=== PATIENT | female | born 1965 | race Caucasian/White ===

== ENCOUNTER 2016-06-18 15:18 | Inpatient (IN) | payer OTHER ==
--- NOTE | ~2016-06-18 | IDS ---
Interim Discharge Summary [facility] [address] [place]. [address] NAME: JOSHUA KOENIG : 69 STATUS : ADM IN [facility]#: [id number] AGE: 51 ADM/REG DATE : 06/18/16 MR#: [id number] REPORT SERV DATE: 06/21/16 DICTATED BY: WILMER RUSSELL DATE: 06/21/16 REPORT STATUS : Draft TRANSCRIBED BY: MODL DATE: 06/21/16 ADMISSION DATE: 06/18/2016 DISCHARGE DATE: CONSULTANTS: Dr. Chiki Gross, Ortho Spine; Dr. Sharan Rivas, Infectious Disease. PROBLEM LIST: 1. 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 2. Neck cellulitis and myositis. 3. Untreated bipolar disorder. 4. HIV, not taking her anti-retroviral therapy at home. 5. Homeless status. 6. History of asthma. 7. Stage 3 chronic kidney disease. 8. History of cocaine abuse. 9. Borderline B12 deficiency. 10.Anemia of chronic disease. 11.Thrombocytopenia. HISTORY: The patient presented to the emergency room at [facility] with complaints of neck pain. She has known HIV and reportedly has not been taking her medications and not been going to see her infectious specialist, Dr. Gusman. In the [facility] ER on this admission, she had neck pain and fever of 101.4. She reportedly was somewhat lethargic and somewhat confused. There was a spinal tap done by the ER. She had only four white blood cells, glucose was normal at 50, protein was normal at 35.6. She was admitted to [facility] and started on antibiotics. Blood cultures x2 grew out methicillin-sensitive Staphylococcus aureus. The CSF did not grow anything. The patient had an echocardiogram done at [facility] on 06/18/2016 showing left atrial size 3.1 cm, left ventricular ejection fraction normal at 55% to 60%, but the tricuspid valve endocarditis and vegetation was seen by Dr. Cabrera. With her complaint of neck pain in the presence of evidence for endocarditis, she underwent an MRI of her cervical spine, which revealed right-sided neck cellulitis and myositis without discrete soft tissue abscess or epidural abscess. There was inflammation, mild thickening, and enhancement of the posterior dura of the cervical spinal cord from C4 through T1. CT of the cervical spine showed diffuse edema along the soft tissues of the right side of the neck involving the right parotid gland with some small scattered pockets of gas in the right neck beginning just below the right ear and extending to the angle of the mandible. There was edema located in the fat and muscle planes of the paraspinous tissues in the midline and right of midline. As a result, the patient was transferred to the [facility] and was seen by Ortho Spine, Dr. Chiki Gross. He examined the patient and went over the history to look at the images, but he thought the patient had soft tissue infection and no collection that would need drainage just antibiotic coverage and a soft collar. The patient is being seen by Dr. Sharan Rivas and is currently on Ancef 2 g IV every eight hours Interim Discharge Summary [address] [place]. [address] NAME: JOSHUA KOENIG : 69 STATUS : ADM IN [facility]#: [id number] AGE: 51 ADM/REG DATE : 06/18/16 MR#: [id number] REPORT SERV DATE: 06/21/16 DICTATED BY: WILMER RUSSELL DATE: 06/21/16 REPORT STATUS : Draft TRANSCRIBED BY: EDVIN DATE: 06/21/16 as well as her anti-retroviral therapy. The patient has admitted history of cocaine use. She also has admitted history of not taking her anti-retroviral medicines. She also states she has bipolar disorder. She states that she cannot tolerate Seroquel, cannot tolerate Depakote, and she states lithium did not work for her. She cannot remember what therapy she might have tried in the past. Here, she has been very emotionally labile, one minute crying almost inconsolably, the next minute laughing and joking. She has rapid speech. She is very tangential. We are asking for Psychiatry to see her in consultation. She complains primarily of neck pain and wanting more narcotics. She points to the right side of her neck. I have looked at her right neck and her right face, and I did not see any physical exam evidence of subcutaneous air or even induration just subjective pain. At this point in time, I am going to add some gabapentin for trying to ameliorate what might be neuropathic pain. It is anticipated that she will need a long course of antibiotics and followup with infectious disease specialist, Dr. Gusman. JIM/EDVIN Wilmer Russell M.D. / [id number] CC: Montez Billings M.D.
--- NOTE | ~2016-06-18 | IDS ---
Interim Discharge Summary [facility] [address] [place]. [address] NAME: JOSHUA KOENIG : 69 STATUS : ADM IN PAT#: [id number] AGE: 51 ADM/REG DATE : 06/18/16 MR#: [id number] REPORT SERV DATE: 06/29/16 DICTATED BY: ARIANE JARAMILLO DATE: 06/29/16 REPORT STATUS : Draft TRANSCRIBED BY: MODL DATE: 06/29/16 ADMISSION DATE: 06/18/2016 DISCHARGE DATE: Date of transfer of the patient to my colleague is 06/30/2016. I have nothing more to add to discharge summary dictated by Dr. Bolivar Russell on 06/21/2016. DIAGNOSES: Diagnoses on this patient include exactly the same thing as dictated in his summary and these include: 1. Tricuspid valve endocarditis and bacteremia with methicillin-susceptible Staphylococcus aureus for which the patient is on IV Ancef and ID is following this patient and has suggested that she get IV antibiotics until 07/31/2016 with the same dose of the Ancef that she is getting. 2. History of IV cocaine use and hence the patient going home with any intravenous access is not feasible in this patient. 3. History of neck cellulitis and myositis - the patient complained of neck pain and tried to get narcotic medications from me - please see Dr. Russell's note, and I agree with his note in relation to neck pain on this patient. She does have a soft cervical collar that she wears and keeps complaining of this pain, but I did give her Zanaflex or tizanidine which is a muscle relaxer and she has been getting this on a regular basis for the last two or three days and does report relief of the neck pain. 4. Bipolar disorder. 5. HIV - the patient is supposed to be on anti-retroviral medications, but she is noncompliant with that; however, the patient has been given these medications as prescribed and managed by Dr. Rivas, Infectious Disease specialist, as of now so far. 6. Homeless status. 7. History of asthma. 8. Chronic kidney disease, stage 3 with a baseline creatinine of around 1.7 and 1.8. BRIEF HOSPITAL COURSE: Essentially, there has been no change in this patient and she has just been waiting for insurance approval to go to [facility] as of now. If she is approved to go to [facility] within the next day or two, she will be sent to [facility] on IV antibiotics, namely IV Ancef to be getting this all the way through 07/31/2016 per ID recommendations. My colleague will be taking over care of this patient as of 06/30/2016. GEMMA/EDVIN Ariane Jaramillo M.D. / [id number] CC: Interim Discharge Summary [address] [address] NAME: JOSHUA KOENIG : 69 STATUS : ADM IN [facility]#: [id number] AGE: 51 ADM/REG DATE : 06/18/16 MR#: [id number] REPORT SERV DATE: 06/29/16 DICTATED BY: ARIANE JARAMILLO DATE: 06/29/16 REPORT STATUS : Draft TRANSCRIBED BY: EDVIN DATE: 06/29/16 Montez Davis M.D.
--- NOTE | ~2016-06-18 | IDS ---
Interim Discharge Summary [facility] [address] [place]. [address] NAME: JOSHUA KOENIG : 69 STATUS : ADM IN [facility]#: [id number] AGE: 51 ADM/REG DATE : 06/18/16 MR#: [id number] REPORT SERV DATE: 07/05/16 DICTATED BY: WILMER RUSSELL DATE: 07/05/16 REPORT STATUS : Draft TRANSCRIBED BY: MODL DATE: 07/05/16 ADMISSION DATE: 06/18/2016 DISCHARGE DATE: CONSULTANTS: Dr. Sharan Rivas, Infectious Disease; Dr. Chiki Gross, Orthopedic Spine; Dr. Dre Campuzano, Psychiatry. PROBLEM LIST: 1. 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 2. Neck cellulitis, myositis, now resolved. 3. Bipolar disorder, improved on low-dose Seroquel. 4. HIV, now back on anti-retroviral therapy. 5. Oral ulcers. 6. History of cocaine and opiate addiction. 7. Bipolar. 8. Stage 3 chronic kidney disease. 9. Seasonal allergies. 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 11.Previous thrombocytopenia, now resolved. 12.Seborrhea. 13.Borderline B12 deficiency. HISTORY: This patient went to the ER at [facility] with neck pain. She is a known HIV and had not been taking her anti-retroviral medications recently. She had not been following up regularly with her infectious disease specialist, Dr. Gusman. In the [facility] ER, she had neck pain and fever of 101.4 and was reportedly lethargic and somewhat confused. Spinal tap there showed white cells of 4, glucose 50, protein 35.6. She was started on antibiotics. Blood cultures grew out methicillin-sensitive Staphylococcus aureus on two sets. CSF with no growth. Echocardiogram at [facility] on 06/18/2016 showed left atrial size 3.1 cm, left ventricular ejection fraction 60%, and evidence of tricuspid valve endocarditis with vegetation as interpreted by Dr. Cabrera. With her complaints of neck pain in the presence of endocarditis, she underwent MRI of the cervical spine which revealed right-sided neck cellulitis and myositis without discrete soft tissue abscess or epidural abscess. There was inflammation and mild thickening and enhancement of the posterior dura of the cervical spine from C4 through T1. CT of the cervical spine showed diffuse edema along the soft tissues of the right side of the neck and even up and involving the right parotid gland with some small scattered pockets of gas in the right neck beginning just below the right ear and extending to the angle of the mandible. There was edema in the fat muscle planes of the paraspinous tissues. As a result, she was transferred from [facility] to the [facility] to see Ortho Spine, Dr. Chiki Gross. Dr. Gross saw the patient, went over the images, examined her, indicated he felt that there was no reason for surgical indication at this time and just to continue with antibiotic therapy. Infectious Disease, Dr. Rivas, is following the patient. She is currently on Ancef 2 g every Interim Discharge Summary [address] [place]. [address] NAME: JOSHUA KOENIG : 69 STATUS : ADM IN [facility]#: [id number] AGE: 51 ADM/REG DATE : 06/18/16 MR#: [id number] REPORT SERV DATE: 07/05/16 DICTATED BY: WILMER RUSSELL DATE: 07/05/16 REPORT STATUS : Draft TRANSCRIBED BY: EDVIN DATE: 07/05/16 eight hours. She is to complete that course on 07/31/2016. So far, we have not had any rehab facility even [facility] that was approved to take her for long-term care. We would not send her out as an outpatient for her antibiotic care because of her history of drug abuse. She has admitted a history of cocaine abuse and opiate addiction. She also had bipolar disorder. She reported initially that she cannot tolerate Seroquel or Depakote or lithium, but it was very vague, and she was manic here, so I did have Dr. Campuzano see the patient, and he felt she did need intervention. He wanted to start on Seroquel 25 mg at bedtime. I talked with him about yes, doing that but stay on a very low dose because of the anti- retroviral therapy that the patient is taking. Remarkably after the Seroquel, she is much less manic, much less emotionally labile, and much more cooperative. She has really not been in any problem behavior hall at all. She has had some oral ulcers. We started Orajel, which helped a little. Now, we have started Magic Mouthwash. I did find an RPR positive 10/05/1994 and getting a repeat plus or minus FTA-ABS levels. She still has a PICC line in the right upper extremity. She had to have Cathflo because of plugging. She is getting B12 supplement. She is getting Selsun Blue shampoo for her seborrhea. This is helping to control her seborrhea. She is getting Claritin for her seasonal allergies which is helping as well. JIM/EDVIN Wilmer Russell M.D. / [id number] CC: Montez Billings M.D.
--- NOTE | ~2016-06-18 | CN ---
Consultation Report [facility] [address] [place]. [address] NAME: JOSHUA KOENIG : 69 STATUS : ADM IN PAT#: [id number] AGE: 51 ADM/REG DATE : 06/18/16 MR#: [id number] REPORT SERV DATE: 06/22/16 DICTATED BY: DRE SHARP DATE: 06/22/16 REPORT STATUS : Draft TRANSCRIBED BY: MODL DATE: 06/22/16 PSYCHIATRIC CONSULTATION DATE OF CONSULTATION: 06/22/2016 HISTORY OF PRESENT ILLNESS: This patient was admitted with MSSA sepsis, with endocarditis. I was consulted to address bipolar disorder. PAST PSYCHIATRIC HISTORY: She reports that she has suffered from mood swings for all of her adult life. She has had episodes of hudson some of which were euphoric and some dysphoric. She is a frequent user of crack cocaine. She smokes marijuana and tobacco. Some years ago, she was treated at [facility]. She stopped attending there about five years ago. SOCIAL HISTORY: She has had multiple relationships and marriages. She lost custody of her two children about 20 years ago. 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 FAMILY HISTORY: She reports that her mother may suffer from mood swings. MENTAL STATUS: She was awake and alert. She was cooperative in attitude. Her mood was euthymic. Her affect was labile. Her thinking was somewhat pressured. She was oriented to time, place, and person. She had no delusions. She had no hallucinations. DIAGNOSIS: Bipolar disorder, manic. RECOMMENDATIONS: She agreed to take Seroquel only if I started her on the lowest possible dose. She said she took it once some years ago and it caused over-sedation. I will start her on Seroquel 25 mg p.o. at bedtime. I will follow. SHAWN/EDVIN Der Sharp M.D. / [id number] CC: Montez Billings M.D.
--- NOTE | ~2016-06-18 | DS ---
Discharge Summary [facility] [address] [place]. [address] NAME: JOSHUA KOENIG : 69 STATUS : DIS IN PAT#: [id number] AGE: 51 ADM/REG DATE : 06/18/16 MR#: [id number] REPORT SERV DATE: 08/01/16 DICTATED BY: BYRON DAVIDSON DATE: 07/31/16 REPORT STATUS : Draft TRANSCRIBED BY: MODL DATE: 07/31/16 ADMISSION DATE: 06/18/2016 DISCHARGE DATE: 07/31/2016 HOSPITAL COURSE: This is a 51-year-old female. She suffers from HIV for which she is now on HAART therapy, bipolar disorder, recurrent aphthous ulcers, history of cocaine opiate addiction, polysubstance abuse, IV drug use, CKD 3, previous positive RPR in 1994, previous thrombocytopenia resolved, seborrhea, borderline B12 deficiency as an outpatient. The patient had not been taking her highly active anti-retroviral therapy for HIV. She has been seeing Dr. Gusman for decades, came into [facility] with neck pain, fever 101.4, lumbar puncture show white blood cells 4, protein 35, glucose of 50. She grew out bacteremia methicillin-sensitive Staphylococcus aureus. Echo showed LVEF of 60%, but then found tricuspid valve endocarditis vegetation. The patient had neck pain, who presents with endocarditis, as a result had MRI and it showed right-sided neck cellulitis and myositis without discrete soft tissue abscess with some small scattered pockets of gas in right neck beginning just below the right ureter extending to the angle of the mandible. As a result, she was sent to [facility] seen by Dr. Gross, who did not feel surgical therapy was indicated. ID Dr. Rivas saw the patient, was transitioned to Ancef 2 g IV q.8 hours. She is to complete the course today on 07/31/2016. She is here because of her risk with [facility] of ensuring the patient does not interfere with her PICC line, known history of IV drug use which she did admit to me that she did months ago. Dr. Campuzano did see the patient, and at that time did not require any intervention, was not manic at that time, but apparently was manic prior. The patient is finally ready for discharge. She did at one time have pleuritic chest pain 3 days ago. D-dimer was elevated, could not give contrast because of her CKD. Got a V/Q scan, but she is 100% room air unlikely to have any PE despite moderate risk. No overt swelling. No more chest pain. No more pleurisy. Cardiac enzymes were negative. The patient at one time was supposed to go to [facility] in [place], now she has changed her mind going to [facility]. She will be discharged home, then go quickly to the recovery center after she has completed her therapy. She will follow up with PCP in two weeks. Follow up with Dr. Gusman in two to six weeks. Follow up with Nephrology for CKD 3 in 4 to 12 weeks. Discharged home, quick followup at [facility]. The patient understands, she is going to stop any and all polysubstance abuse, and alcohol. DISCHARGE MEDICATIONS: 1. Acyclovir 400 mg p.o. b.i.d. 2. We will get a multivitamin tablet p.o. daily as recommendation. 3. Prezista 800 mg p.o. q.h.s. 4. Colace 100 mg p.o. daily. 5. Tivicay 50 mg p.o. b.i.d. 6. Claritin 10 mg p.o. daily p.r.n. 7. MD Alfonso mouth wash 5 mL p.o. liquid q.6 hours for recurrent aphthous ulcers. Discharge Summary [address] [address] NAME: JOSHUA KOENIG : 69 STATUS : DIS IN PAT#: [id number] AGE: 51 ADM/REG DATE : 06/18/16 MR#: [id number] REPORT SERV DATE: 08/01/16 DICTATED BY: BYRON DAVIDSON DATE: 07/31/16 REPORT STATUS : Draft TRANSCRIBED BY: EDVIN DATE: 07/31/16 8. Mirapex 0.125 mg p.o. q.h.s. 9. Seroquel 25 mg p.o. q.h.s. 10.Norvir 100 mg p.o. q.h.s. 11.Ibuprofen p.r.n. 12.We would recommend multivitamin one pill p.o. daily. I gave her prescriptions for all of her necessary medications in case she ran out as an outpatient or could not afford them. I would like to reference her CD4 count, absolute is 105, CD4 percent is 13.1 which measures near 180 of the advanced HIV, suspicion is with compliance with HAART therapy. Her C4 should increase. Right of Pneumocystis PCP is low if she is compliant. For HIV 1 viral LDRES load is 128. Hepatitis serologies were not detected. CONSULT: 1. Infectious Disease. 2. Ortho Spine. Bipolar disease. We will give dose Ancef early, then D/C PICC line prior to discharge. DISCHARGE DIAGNOSES: 1. Left pleuritic chest pain. 2. Methicillin-sensitive Staphylococcus aureus. 3. Tricuspid valve endocarditis. 4. Human immunodeficiency virus, Advanced HIV-CD4 with percent, CD4 is more likely near 180, absolutes are 100, near low 100. 5. History of bipolar. 6. History of polysubstance abuse. 7. Chronic kidney disease, stage 3. 8. Restless legs syndrome. All questions were answered. It took well over 30 minutes to do. HAILE/ENOCL Byron Davidson DO / [id number] CC: DO Hay Carlton M.D.
--- NOTE | ~2016-06-18 | IDS ---
Interim Discharge Summary [facility] [address] [place]. [address] NAME: JOSHUA KOENIG : 69 STATUS : ADM IN [facility]#: [id number] AGE: 51 ADM/REG DATE : 06/18/16 MR#: [id number] REPORT SERV DATE: 07/13/16 DICTATED BY: ASHISH PAUL DATE: 07/12/16 REPORT STATUS : Draft TRANSCRIBED BY: MODL DATE: 07/12/16 ADMISSION DATE: 06/18/2016 DISCHARGE DATE: DIAGNOSES: 1. Staphylococcus aureus sepsis with endocarditis and tricuspid valve. 2. Human immunodeficiency virus. 3. History of bipolar disorder. 4. History of polysubstance abuse. 5. History of neck abscess and cellulitis. HISTORY OF PRESENT ILLNESS: Please see Dr. Russell's dictation 06/18/2016. HOSPITAL COURSE: Please see subsequent interim summaries by Dr. Russell, Dr. Whiting hospital course of the past week. The patient was not found to be placable in any location including a detention facility or [place]. As the patient was homeless and unreliable, it was felt best not to try to attempt home health care at a relative's house, of course, the biggest concern would be relapse of her injectable drug abuse, so she would stay with us until 07/31/2016, at which time, her vancomycin will be completed and she be released to a drug rehab location, which had already been set up in [place], but will be here in the interim time. FIDEL/EDVIN Ashish Paul M.D. / [id number] CC: Montez Marino M.D.
--- NOTE | ~2016-06-18 | IDS ---
Interim Discharge Summary [facility] [address] [place]. [address] NAME: JOSHUA KOENIG : 69 STATUS : ADM IN [facility]#: [id number] AGE: 51 ADM/REG DATE : 06/18/16 MR#: [id number] REPORT SERV DATE: 07/27/16 DICTATED BY: GRAEME GALLEGO DATE: 07/27/16 REPORT STATUS : Draft TRANSCRIBED BY: MODLuana DATE: 07/27/16 ADMISSION DATE: 06/18/2016 DISCHARGE DATE: REASON FOR ADMISSION: The patient was admitted at [facility] with chief complaint of severe neck pain, weakness, and fever. She is a 51-year-old female with history of cocaine use and HIV. HOSPITAL COURSE: Please see admission H and P from Cintia Cerna on 06/18/2016 as well as interim discharge summary from Bolivar Russell 06/21/2016, interim discharge summary from Antionette Whiting on 06/29/2016, interim discharge summary from Bolivar Russell on 07/05/2016, and interim discharge summary from Dr. Dave Sanches on 07/13/2016. I took over the patient's care on 07/21/2016. INTERIM DISCHARGE DIAGNOSES: 1. Methicillin-sensitive Staphylococcus aureus tricuspid valve endocarditis. 2. Human immunodeficiency virus. 3. History of bipolar. 4. History of polysubstance abuse. 5. Acute kidney injury on chronic kidney disease. 6. Restless legs syndrome. MSSA tricuspid valve endocarditis, the patient is here, receiving IV Ancef under direction of Infectious Disease for her endocarditis. MSSA bacteria positive. She is will be on it through 07/31/2016 and is nearing conclusion of her treatment. There have been no status changes throughout the week except for the patient had complaint of restless leg like symptoms. She was started on Mirapex and had resolution of symptoms. CURRENT MEDICATIONS: 1. Acyclovir 400 mg p.o. b.i.d. 2. Ancef 2 g IV q.8 h. 3. Vitamin B12 of 2000 mcg p.o. daily. 4. Darunavir 800 mg p.o. at bedtime. 5. Colace 100 mg p.o. daily. 6. Dolutegravir sodium 50 mg p.o. b.i.d. 7. Loratadine 10 mg p.o. daily. 8. Mirapex 0.125 mg p.o. at bedtime. 9. Seroquel 25 mg p.o. at bedtime. 10.Ritonavir 100 mg p.o. at bedtime. 11.Florastor one capsule p.o. b.i.d. 12.Selenium sulfide topically daily. CURRENT PLAN: The patient to complete her IV Ancef treatment on 07/31/2016 and then is reportedly going to check herself into drug rehab at conclusion of hospital stay. The patient care to be assumed by Nicolas Jon this week. Interim Discharge Summary [place] [id number] [place] [address] NAME: JOSHUA KOENIG : 69 STATUS : ADM IN PAT#: [id number] AGE: 51 ADM/REG DATE : 06/18/16 MR#: [id number] REPORT SERV DATE: 07/27/16 DICTATED BY: GRAEME GALLEGO DATE: 07/27/16 REPORT STATUS : Draft TRANSCRIBED BY: EDVIN DATE: 07/27/16 TDR/EDVIN Graeme Gallego APN / [id number] CC: Montez Marino M.D. Hal [place], M.D. Wesley S. Thompson, DO
--- NOTE | ~2016-06-18 | CN ---
Consultation Report [facility] [address] [place]. [address] NAME: JOSHUA KOENIG : 69 STATUS : ADM IN [facility]#: [id number] AGE: 51 ADM/REG DATE : 06/18/16 MR#: [id number] REPORT SERV DATE: 06/19/16 DICTATED BY: KALYAN RIVAS DATE: 06/19/16 REPORT STATUS : Draft TRANSCRIBED BY: MODL DATE: 06/19/16 INFECTIOUS DISEASE CONSULTATION DATE OF CONSULTATION: 06/19/2016 REASON FOR CONSULTATION: MSSA septicemia, complicated by neck infection. HISTORY OF PRESENT ILLNESS: This is a 51-year-old female with a long history of HIV infection with poor adherence to treatment along with a history of injection drug use. She states that she was in her baseline state of health until 06/15 when she had a rather acute onset of neck pain, which became progressively more severe, and she also had associated weakness and fever. She presented to the [facility] Emergency Department and was found to be febrile at 101.4 and had a lot of pain on exam and limited range of motion of her neck. Blood cultures were obtained, and she was started on empiric antibiotics. She underwent a lumbar puncture, which showed no signs of infection. An MRI scan of the cervical spine was then performed yesterday with and without IV contrast. This was interpreted as showing right neck cellulitis/infiltration of the fat planes without a discrete abscess and without an epidural abscess. In addition, there was inflammation and mild thickening with enhancement of the posterior dura of the cervical spinal cord from C4 through T1. The patient was transferred here for evaluation by [facility]. Dr. Gross saw her this morning and reviewed the MRI and does not see evidence of an abscess that would require surgical intervention. In addition, the patient apparently had transthoracic echocardiogram yesterday, which by verbal report shows a vegetation on the tricuspid valve. Both of her blood cultures have returned with oxacillin-sensitive Staph aureus. Her antibiotics were changed to Ancef yesterday. Her maximum fever in the last 24 hours is 101.1. Her neck pain is improved, although still bothersome. The patient denies any recent injection drug use. She does have ongoing cocaine use. She denies any significant cough. PAST MEDICAL HISTORY: As outlined above. With regard to her HIV infection, she is unsure of her most recent CD4 count or viral load, but admits to being poorly adherent to her antiretroviral therapy. She sees Dr. Gusman. In addition, there is a history of psychiatric problems, possible bipolar disorder or schizophrenia, along with asthma and COPD. She was admitted to [facility] in January with E coli UTI with bacteremia and sepsis and possible colitis, but with a negative colonoscopy. ALLERGIES: SULFA CAUSES BUMPS ON HER FACE. PENICILLIN CAUSES HIVES. MACROLIDE ANTIBIOTICS CAUSE GI SYMPTOMS. UNCERTAIN REACTION TO CECLOR IN THE PAST. THE PATIENT TELLS ME THAT MEPRON CAUSED HER TO TURN YELLOW WHILE SHE WAS IN [facility] MANY YEARS AGO, BUT SHE STATES THAT IT WAS NOT DUE TO LIVER PROBLEMS, BUT I HAVE NO DETAILS OF THIS. PRESENT MEDICATIONS: In addition to the Ancef include acyclovir 400 mg p.o. b.i.d., darunavir 800 mg p.o. daily, Norvir 100 mg p.o. daily, dolutegravir 50 mg daily, fluconazole 150 mg daily. Consultation Report [address] [place]. [address] NAME: JOSHUA KOENIG : 69 STATUS : ADM IN PAT#: [id number] AGE: 51 ADM/REG DATE : 06/18/16 MR#: [id number] REPORT SERV DATE: 06/19/16 DICTATED BY: KALYAN RIVAS DATE: 06/19/16 REPORT STATUS : Draft TRANSCRIBED BY: EDVIN DATE: 06/19/16 SOCIAL HISTORY: The patient tells me that she is presently homeless and sleeps on a friend's couch. She has been a long-term smoker and also has other drug use as mentioned. Denies alcohol abuse. FAMILY HISTORY: Noncontributory. REVIEW OF SYSTEMS: As outlined above, otherwise negative. She denies any significant headache. No chest pain, nausea, vomiting, or diarrhea. No genitourinary symptoms, although she has a Grant catheter now. The patient has lost a fair amount of weight, but she is unsure exactly how much. PHYSICAL EXAMINATION: VITAL SIGNS: The patient weighs 51 kg. Presently afebrile. Blood pressure 98/53, pulse 79, respiratory rate 14. GENERAL: She is cachectic, alert, in no acute distress. HEAD AND NECK: Extraocular movements are intact. The oral cavity shows no thrush. The neck has some tenderness to palpation in right posterolateral neck, greater than left. No erythema. LUNGS: Clear to auscultation. CARDIAC: Regular rate and rhythm. Normal S1 and S2 with a 2/6 systolic murmur along the left sternal border. ABDOMEN: Soft, nontender, nondistended. No masses. EXTREMITIES: Without edema. SKIN: Without rash. She has peripheral IV without phlebitis. LABORATORY STUDIES: White blood cell count today 6.4, hemoglobin 8.9, platelets 90,000 (she has chronic thrombocytopenia). Creatinine 1.37, which appears to be in the neighborhood of her baseline. Albumin 2.4, other liver function tests normal. Sedimentation rate 111. Urinalysis on admission negative. Cryptococcal antigen on her spinal fluid negative. Chest x-ray on admission negative. MRI as noted. Echocardiogram as noted. 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 The picture is complicated by what appears to be a cellulitis/myositis of her neck without evidence of soft tissue abscess or epidural abscess or diskitis/osteomyelitis. PLAN: 1. Continue Ancef, plan six weeks of treatment. 2. We will repeat blood cultures today. 3. We will continue her antiretroviral therapy. 4. She needs Pneumocystis prophylaxis. She tells me she thinks she has taken dapsone in the past, but is unsure. We will consider starting this in a few days. Need to monitor her for reaction to the Ancef as she apparently has a past history of some sort of reaction to Ceclor. Consultation Report [address] [place]. [address] NAME: JOSHUA KOENIG : 69 STATUS : ADM IN [facility]#: [id number] AGE: 51 ADM/REG DATE : 06/18/16 MR#: [id number] REPORT SERV DATE: 06/19/16 DICTATED BY: KALYAN RIVAS DATE: 06/19/16 REPORT STATUS : Draft TRANSCRIBED BY: EDVIN DATE: 06/19/16 ABEBA/EDVIN Kalyan Rivas M.D. / [id number] CC: Bolivar Russell M.D.
--- NOTE | ~2016-06-18 | CN ---
Consultation Report [facility] [address] [place]. [address] NAME: JOSHUA KOENIG : 69 STATUS : ADM IN PAT#: [id number] AGE: 51 ADM/REG DATE : 06/18/16 MR#: [id number] REPORT SERV DATE: 06/19/16 DICTATED BY: CHIKI GROSS DATE: 06/19/16 REPORT STATUS : Draft TRANSCRIBED BY: MODL DATE: 06/19/16 DATE OF CONSULTATION: CHIEF COMPLAINT: Posterior neck pain. HISTORY OF PRESENT ILLNESS: This is a 51-year-old female with a long history as outlined in history and physical. She has been recently hospitalized at [facility] due to neck pain. A recent MRI was obtained, it indicated some diffuse edema in the posterior soft tissues of the neck, there is no focal abscess. The patient complains of pain in the neck, does not radiate into the upper or lower extremities. She still is moving her upper and lower extremities in a normal fashion. The hospitalist is currently treating her with pain medications. Her past medical history, surgical history, current medications, allergies, social history, and family history is noted from the review of the chart and the records sent from [facility]. PHYSICAL EXAMINATION: GENERAL: Today, on physical exam, she is alert and cooperative. She does complain of being very cold. She does not appear in acute distress. HEENT: She is normocephalic. NECK: Her neck has limited range of motion due to pain. She has pain with soft-tissue palpation of the posterior neck, but no focal masses or fluid collections are palpated. She is very thin, and it is easily to palpate the entire posterior musculature which is diffusely painful, but there is no one area more painful than the other. NEUROLOGIC: The upper and lower extremity neurological exam is grossly intact. She is moving the upper and lower extremities. Overall grossly, the strength appears to be intact as well. IMAGING: I have reviewed the MRI, it does show diffuse edema throughout several intermuscular planes, but there is no focal collection either in the epidural space or in the paraspinous muscles that would be amenable to placement of a drain or of open drainage. RECOMMENDATION: At this time, I do not see any surgical indications. I think she should be treated with IV antibiotics. Infectious Disease consult is probably appropriate, and I will order a soft collar to potentially help with some overall muscle pain. /EDVIN Chiki Gross D.O. / [id number] Consultation Report [place] [address] [address] NAME: JOSHUA KOENIG : 69 STATUS : ADM IN PAT#: [id number] AGE: 51 ADM/REG DATE : 06/18/16 MR#: [id number] REPORT SERV DATE: 06/19/16 DICTATED BY: CHIKI GROSS DATE: 06/19/16 REPORT STATUS : Draft TRANSCRIBED BY: EDVIN DATE: 06/19/16 CC: Bolivar Russell M.D.
[~2016-06-18 15:18] MED LIST: EDURANT PO; EPIVIR OR; EPIVIR PO; FLUCON150 PO; LEVAQUIN750 MG PO; NORVIR100 PO; NORVIR80 MG/ML PO; PREZISTA300 MG OR; PREZISTA300 MG PO; PREZISTA600 MG PO; PRILO PO; TIVICAY50 MG PO; TRILEP300 PO; VIREAD 300 MG300 MG PO; VIREAD300 MG OR; ZANTAC 150 PO; ZOFRAN4 PO; ZOVI200CAP PO; ZOVIRAX400 MG PO; ZYP5 PO
[2016-06-19 06:00] LABS: BASOPHILS 0.5 %; BASOPHILS ABSOLUTE 0.03 10/3/uL (0.0-0.16); EOSINOPHILS 0 %; HEMATOCRIT 27.6 % (36.0-48.0); HEMOGLOBIN 8.9 g/dL (12.0-16.0); IMMATURE GRANULOCYTES 0.2 %; IMMATURE GRANULOCYTES ABSOLUTE 0.01 10/3/uL (0.0-0.11); LYMPHOCYTES 20.4 %; LYMPHOCYTES ABSOLUTE 1.31 10/3/uL (0.67-4.30); MEAN CORPUS HGB CONC 32.2 g/dL (32.0-36.0); MEAN CORPUSCULAR HEMOGLOB 27.6 pg (26.0-34.0); MEAN CORPUSCULAR VOLUME 85.4 fL (80-100); MEAN PLATELET VOLUME 10.6 fL (9.2-13.0); MONOCYTES 11.1 %; MONOCYTES ABSOLUTE 0.71 10/3/uL (0.21-1.20); NEUTROPHILS 67.8 %; NEUTROPHILS ABSOLUTE 4.36 10/3/uL (2.02-8.40); PLATELET COUNT 90 10/3/uL (150-400); RBC DISTRIBUTION WIDTH 13.9 % (12.0-16.0); RED CELL COUNT 3.23 10/6/uL (4.0-5.6); WHITE BLOOD CELLS 6.4 10/3/uL (4.5-10.5)
[2016-06-19 06:06] LABS: ALKALINE PHOSPHATASE 49 U/L (45-117); CALCIUM, SERUM 7.8 MG/DL (8.5-10.4); CHLORIDE, SERUM 103 MMOL/L (96-112); CREATININE 1.37 MG/DL (0.55-1.02); GFR AFRICAN AMERICAN 52 ML/MIN (>=60); GFR NON AFRICAN AMERICAN 45 ML/MIN (>=60); GLUCOSE, SERUM 93 MG/DL (60-99); PHOSPHORUS, SERUM 2.6 MG/DL (2.5-4.5); POTASSIUM, SERUM 3.7 MMOL/L (3.5-5.3); SGPT(ALT) 10 U/L (5-65); SODIUM, SERUM 133 MMOL/L (135-148); TOTAL BILIRUBIN 0.3 MG/DL (0-1.2); TOTAL PROTEIN 7.1 G/DL (6.0-8.5)
[2016-06-19 06:07] LABS: A/G RATIO 0.5 (0.7-1.9); ALBUMIN 2.4 G/DL (3.5-5.0); BUN (BLOOD UREA NITROGEN) 17 MG/DL (6-23); CO2 (CARBON DIOXIDE) 21 MMOL/L (24-34); DIRECT BILIRUBIN < 0.1 MG/DL (0.0-0.4); GLOBULIN 4.7 G/DL (2.5-4.1); INDIRECT BILIRUBIN(NOT ORDER) 0.2 MG/DL (0.1-0.9)
[2016-06-19 06:08] LABS: SGOT(AST) 23 U/L (5-40)
[2016-06-19 06:11] LABS: MANUAL DIFF NO %
[2016-06-19 06:15] LABS: INTERNATIONAL NORMAL RATI 1.1 UNITS (-); PROTIME (NOT ORD) 14.5 SEC (12.0-14.5)
[2016-06-19] MEDS ORDERED: NORVIR100 PO (11:31)
[2016-06-19] MEDS ORDERED: PREZISTA800 MG PO (11:31)
[2016-06-19] MEDS ORDERED: CLARIT10 PO (11:32)
[2016-06-19] MEDS ORDERED: TIVICAY50 MG PO (11:32)
[2016-06-19] MEDS ORDERED: ADVIL PO (11:32)
[2016-06-19] MEDS ORDERED: EDURANT PO (11:33)
[2016-06-19] MEDS ORDERED: ZOVIRAX400 MG PO (11:33)
[2016-06-19 15:52] LABS: % IRON SAT 10 % (20-50); FERRITIN 545 NG/ML (8-252); IRON BINDING CAPACITY 127 MCG/DL (225-410); IRON, SERUM 13 MCG/DL (35-150)
[2016-06-20 07:08] LABS: CALCIUM, SERUM 7.9 MG/DL (8.5-10.4); CHLORIDE, SERUM 99 MMOL/L (96-112); CREATININE 1.27 MG/DL (0.55-1.02); GFR AFRICAN AMERICAN 57 ML/MIN (>=60); GFR NON AFRICAN AMERICAN 50 ML/MIN (>=60); GLUCOSE, SERUM 107 MG/DL (60-99); POTASSIUM, SERUM 3.5 MMOL/L (3.5-5.3); SODIUM, SERUM 135 MMOL/L (135-148)
[2016-06-20 07:12] LABS: BUN (BLOOD UREA NITROGEN) 13 MG/DL (6-23); CO2 (CARBON DIOXIDE) 26 MMOL/L (24-34)
[2016-06-20 07:19] LABS: BASOPHILS 0.4 %; BASOPHILS ABSOLUTE 0.02 10/3/uL (0.0-0.16); EOSINOPHILS 1.1 %; EOSINOPHILS ABSOLUTE 0.06 10/3/uL (0.0-0.53); HEMATOCRIT 28.5 % (36.0-48.0); HEMOGLOBIN 9.8 g/dL (12.0-16.0); IMMATURE GRANULOCYTES 0.4 %; IMMATURE GRANULOCYTES ABSOLUTE 0.02 10/3/uL (0.0-0.11); LYMPHOCYTES 33.6 %; LYMPHOCYTES ABSOLUTE 1.81 10/3/uL (0.67-4.30); MEAN CORPUSCULAR HEMOGLOB 27.9 pg (26.0-34.0); MEAN PLATELET VOLUME 10.2 fL (9.2-13.0); MONOCYTES 8.9 %; MONOCYTES ABSOLUTE 0.48 10/3/uL (0.21-1.20); NEUTROPHILS 55.6 %; NEUTROPHILS ABSOLUTE 2.99 10/3/uL (2.02-8.40); PLATELET COUNT 114 10/3/uL (150-400); RBC DISTRIBUTION WIDTH 13.4 % (12.0-16.0); RED CELL COUNT 3.51 10/6/uL (4.0-5.6); WHITE BLOOD CELLS 5.4 10/3/uL (4.5-10.5)
[2016-06-20 07:23] LABS: MANUAL DIFF NO %; MEAN CORPUS HGB CONC 33.4 g/dL (32.0-36.0); MEAN CORPUSCULAR VOLUME 81.2 fL (80-100)
[2016-06-22 07:53] LABS: BASOPHILS 0.5 %; BASOPHILS ABSOLUTE 0.02 10/3/uL (0.0-0.16); EOSINOPHILS 2.2 %; EOSINOPHILS ABSOLUTE 0.09 10/3/uL (0.0-0.53); HEMOGLOBIN 8.9 g/dL (12.0-16.0); IMMATURE GRANULOCYTES 0.2 %; IMMATURE GRANULOCYTES ABSOLUTE 0.01 10/3/uL (0.0-0.11); LYMPHOCYTES 40.4 %; LYMPHOCYTES ABSOLUTE 1.67 10/3/uL (0.67-4.30); MEAN CORPUSCULAR HEMOGLOB 28.4 pg (26.0-34.0); MEAN CORPUSCULAR VOLUME 79.9 fL (80-100); MEAN PLATELET VOLUME 9.2 fL (9.2-13.0); MONOCYTES 6.8 %; MONOCYTES ABSOLUTE 0.28 10/3/uL (0.21-1.20); NEUTROPHILS 49.9 %; NEUTROPHILS ABSOLUTE 2.06 10/3/uL (2.02-8.40); PLATELET COUNT 141 10/3/uL (150-400); RED CELL COUNT 3.13 10/6/uL (4.0-5.6); WHITE BLOOD CELLS 4.1 10/3/uL (4.5-10.5)
[2016-06-22 07:54] LABS: MANUAL DIFF NO %; MEAN CORPUS HGB CONC 35.6 g/dL (32.0-36.0)
[2016-06-22 08:06] LABS: BUN (BLOOD UREA NITROGEN) 13 MG/DL (6-23); CALCIUM, SERUM 8.2 MG/DL (8.5-10.4); CHLORIDE, SERUM 101 MMOL/L (96-112); CO2 (CARBON DIOXIDE) 30 MMOL/L (24-34); CREATININE 1.18 MG/DL (0.55-1.02); GFR AFRICAN AMERICAN 63 ML/MIN (>=60); GFR NON AFRICAN AMERICAN 54 ML/MIN (>=60); GLUCOSE, SERUM 108 MG/DL (60-99); SODIUM, SERUM 138 MMOL/L (135-148)
[2016-06-26 06:28] LABS: BASOPHILS 0.4 %; BASOPHILS ABSOLUTE 0.02 10/3/uL (0.0-0.16); EOSINOPHILS 3.6 %; HEMOGLOBIN 10.1 g/dL (12.0-16.0); IMMATURE GRANULOCYTES 0.5 %; IMMATURE GRANULOCYTES ABSOLUTE 0.03 10/3/uL (0.0-0.11); LYMPHOCYTES 39.2 %; LYMPHOCYTES ABSOLUTE 2.19 10/3/uL (0.67-4.30); MEAN CORPUS HGB CONC 34.5 g/dL (32.0-36.0); MEAN CORPUSCULAR HEMOGLOB 28.4 pg (26.0-34.0); MEAN PLATELET VOLUME 8.9 fL (9.2-13.0); MONOCYTES 8.8 %; MONOCYTES ABSOLUTE 0.49 10/3/uL (0.21-1.20); NEUTROPHILS 47.5 %; NEUTROPHILS ABSOLUTE 2.66 10/3/uL (2.02-8.40); RBC DISTRIBUTION WIDTH 13.5 % (12.0-16.0); RED CELL COUNT 3.56 10/6/uL (4.0-5.6); WHITE BLOOD CELLS 5.6 10/3/uL (4.5-10.5)
[2016-06-26 06:34] LABS: HEMATOCRIT 29.3 % (36.0-48.0); MANUAL DIFF NO %; MEAN CORPUSCULAR VOLUME 82.3 fL (80-100); PLATELET COUNT 279 10/3/uL (150-400)
[2016-06-26 06:46] LABS: CALCIUM, SERUM 8.9 MG/DL (8.5-10.4); CHLORIDE, SERUM 94 MMOL/L (96-112); CO2 (CARBON DIOXIDE) 33 MMOL/L (24-34); CREATININE 1.47 MG/DL (0.55-1.02); GFR AFRICAN AMERICAN 48 ML/MIN (>=60); GFR NON AFRICAN AMERICAN 41 ML/MIN (>=60); GLUCOSE, SERUM 100 MG/DL (60-99); SODIUM, SERUM 135 MMOL/L (135-148)
[2016-06-26 06:49] LABS: BUN (BLOOD UREA NITROGEN) 25 MG/DL (6-23); POTASSIUM, SERUM 5.1 MMOL/L (3.5-5.3)
[2016-06-27 06:40] LABS: BUN (BLOOD UREA NITROGEN) 25 MG/DL (6-23); CALCIUM, SERUM 9.2 MG/DL (8.5-10.4); CHLORIDE, SERUM 95 MMOL/L (96-112); CO2 (CARBON DIOXIDE) 34 MMOL/L (24-34); CREATININE 1.48 MG/DL (0.55-1.02); GFR AFRICAN AMERICAN 48 ML/MIN (>=60); GFR NON AFRICAN AMERICAN 41 ML/MIN (>=60); GLUCOSE, SERUM 110 MG/DL (60-99); POTASSIUM, SERUM 4.8 MMOL/L (3.5-5.3); SODIUM, SERUM 136 MMOL/L (135-148)
[2016-06-29 06:43] LABS: BASOPHILS 0.2 %; BASOPHILS ABSOLUTE 0.01 10/3/uL (0.0-0.16); EOSINOPHILS 3.4 %; EOSINOPHILS ABSOLUTE 0.15 10/3/uL (0.0-0.53); HEMATOCRIT 26.3 % (36.0-48.0); HEMOGLOBIN 8.9 g/dL (12.0-16.0); IMMATURE GRANULOCYTES 0.2 %; IMMATURE GRANULOCYTES ABSOLUTE 0.01 10/3/uL (0.0-0.11); LYMPHOCYTES 46.5 %; LYMPHOCYTES ABSOLUTE 2.03 10/3/uL (0.67-4.30); MANUAL DIFF NO %; MEAN CORPUS HGB CONC 33.8 g/dL (32.0-36.0); MEAN CORPUSCULAR HEMOGLOB 28.5 pg (26.0-34.0); MEAN CORPUSCULAR VOLUME 84.3 fL (80-100); MEAN PLATELET VOLUME 8.9 fL (9.2-13.0); MONOCYTES 9.6 %; MONOCYTES ABSOLUTE 0.42 10/3/uL (0.21-1.20); NEUTROPHILS 40.1 %; NEUTROPHILS ABSOLUTE 1.75 10/3/uL (2.02-8.40); PLATELET COUNT 220 10/3/uL (150-400); RBC DISTRIBUTION WIDTH 13.7 % (12.0-16.0); RED CELL COUNT 3.12 10/6/uL (4.0-5.6); WHITE BLOOD CELLS 4.4 10/3/uL (4.5-10.5)
[2016-06-29 07:37] LABS: BUN (BLOOD UREA NITROGEN) 27 MG/DL (6-23); CALCIUM, SERUM 9.8 MG/DL (8.5-10.4); CHLORIDE, SERUM 98 MMOL/L (96-112); CO2 (CARBON DIOXIDE) 33 MMOL/L (24-34); CREATININE 1.49 MG/DL (0.55-1.02); GFR AFRICAN AMERICAN 47 ML/MIN (>=60); GFR NON AFRICAN AMERICAN 41 ML/MIN (>=60); GLUCOSE, SERUM 102 MG/DL (60-99); POTASSIUM, SERUM 4.9 MMOL/L (3.5-5.3); SODIUM, SERUM 137 MMOL/L (135-148)
[2016-07-02 05:57] LABS: BASOPHILS 0.3 %; BASOPHILS ABSOLUTE 0.01 10/3/uL (0.0-0.16); EOSINOPHILS 4.6 %; EOSINOPHILS ABSOLUTE 0.18 10/3/uL (0.0-0.53); HEMATOCRIT 27.7 % (36.0-48.0); HEMOGLOBIN 9.2 g/dL (12.0-16.0); IMMATURE GRANULOCYTES 0.3 %; IMMATURE GRANULOCYTES ABSOLUTE 0.01 10/3/uL (0.0-0.11); LYMPHOCYTES 44.9 %; LYMPHOCYTES ABSOLUTE 1.77 10/3/uL (0.67-4.30); MEAN CORPUS HGB CONC 33.2 g/dL (32.0-36.0); MEAN CORPUSCULAR HEMOGLOB 28.7 pg (26.0-34.0); MEAN CORPUSCULAR VOLUME 86.3 fL (80-100); MEAN PLATELET VOLUME 9.2 fL (9.2-13.0); MONOCYTES 10.9 %; MONOCYTES ABSOLUTE 0.43 10/3/uL (0.21-1.20); NEUTROPHILS ABSOLUTE 1.54 10/3/uL (2.02-8.40); PLATELET COUNT 214 10/3/uL (150-400); RED CELL COUNT 3.21 10/6/uL (4.0-5.6); WHITE BLOOD CELLS 3.9 10/3/uL (4.5-10.5)
[2016-07-02 06:05] LABS: MANUAL DIFF NO %
[2016-07-02 06:20] LABS: A/G RATIO 0.5 (0.7-1.9); ALBUMIN 2.8 G/DL (3.5-5.0); CALCIUM, SERUM 8.9 MG/DL (8.5-10.4); CHLORIDE, SERUM 99 MMOL/L (96-112); CO2 (CARBON DIOXIDE) 29 MMOL/L (24-34); CREATININE 1.48 MG/DL (0.55-1.02); GFR AFRICAN AMERICAN 48 ML/MIN (>=60); GFR NON AFRICAN AMERICAN 41 ML/MIN (>=60); GLOBULIN 5.2 G/DL (2.5-4.1); GLUCOSE, SERUM 105 MG/DL (60-99); POTASSIUM, SERUM 4.6 MMOL/L (3.5-5.3); SGOT(AST) 36 U/L (5-40); SGPT(ALT) 18 U/L (5-65); SODIUM, SERUM 138 MMOL/L (135-148); TOTAL BILIRUBIN 0.5 MG/DL (0-1.2)
[2016-07-02 06:24] LABS: ALKALINE PHOSPHATASE 73 U/L (45-117); BUN (BLOOD UREA NITROGEN) 35 MG/DL (6-23)
[2016-07-05 07:35] LABS: BASOPHILS ABSOLUTE 0.04 10/3/uL (0.0-0.16); EOSINOPHILS 5.4 %; EOSINOPHILS ABSOLUTE 0.21 10/3/uL (0.0-0.53); HEMATOCRIT 28.3 % (36.0-48.0); HEMOGLOBIN 9.5 g/dL (12.0-16.0); IMMATURE GRANULOCYTES 0.5 %; IMMATURE GRANULOCYTES ABSOLUTE 0.02 10/3/uL (0.0-0.11); LYMPHOCYTES 46.9 %; LYMPHOCYTES ABSOLUTE 1.83 10/3/uL (0.67-4.30); MEAN CORPUS HGB CONC 33.6 g/dL (32.0-36.0); MEAN CORPUSCULAR HEMOGLOB 28.7 pg (26.0-34.0); MEAN CORPUSCULAR VOLUME 85.5 fL (80-100); MEAN PLATELET VOLUME 9.2 fL (9.2-13.0); MONOCYTES 11.3 %; MONOCYTES ABSOLUTE 0.44 10/3/uL (0.21-1.20); NEUTROPHILS 34.9 %; NEUTROPHILS ABSOLUTE 1.36 10/3/uL (2.02-8.40); PLATELET COUNT 184 10/3/uL (150-400); RBC DISTRIBUTION WIDTH 14.5 % (12.0-16.0); RED CELL COUNT 3.31 10/6/uL (4.0-5.6); WHITE BLOOD CELLS 3.9 10/3/uL (4.5-10.5)
[2016-07-05 07:37] LABS: MANUAL DIFF NO %
[2016-07-05 07:51] LABS: BUN (BLOOD UREA NITROGEN) 35 MG/DL (6-23); CALCIUM, SERUM 9.2 MG/DL (8.5-10.4); CHLORIDE, SERUM 102 MMOL/L (96-112); CO2 (CARBON DIOXIDE) 29 MMOL/L (24-34); CREATININE 1.56 MG/DL (0.55-1.02); GFR AFRICAN AMERICAN 45 ML/MIN (>=60); GFR NON AFRICAN AMERICAN 39 ML/MIN (>=60); GLUCOSE, SERUM 90 MG/DL (60-99); POTASSIUM, SERUM 4.5 MMOL/L (3.5-5.3); SODIUM, SERUM 139 MMOL/L (135-148)
[2016-07-14 06:31] LABS: BASOPHILS 0.3 %; BASOPHILS ABSOLUTE 0.01 10/3/uL (0.0-0.16); EOSINOPHILS 10.6 %; EOSINOPHILS ABSOLUTE 0.32 10/3/uL (0.0-0.53); IMMATURE GRANULOCYTES 0.3 %; IMMATURE GRANULOCYTES ABSOLUTE 0.01 10/3/uL (0.0-0.11); LYMPHOCYTES ABSOLUTE 1.12 10/3/uL (0.67-4.30); MANUAL DIFF NO %; MEAN CORPUS HGB CONC 34.5 g/dL (32.0-36.0); MEAN CORPUSCULAR HEMOGLOB 29.7 pg (26.0-34.0); MEAN CORPUSCULAR VOLUME 86.1 fL (80-100); MONOCYTES 9.9 %; NEUTROPHILS 41.9 %; NEUTROPHILS ABSOLUTE 1.27 10/3/uL (2.02-8.40); PLATELET COUNT 138 10/3/uL (150-400); RBC DISTRIBUTION WIDTH 14.9 % (12.0-16.0); RED CELL COUNT 3.37 10/6/uL (4.0-5.6)
[2016-07-14 06:43] LABS: CALCIUM, SERUM 8.9 MG/DL (8.5-10.4); CHLORIDE, SERUM 105 MMOL/L (96-112); CO2 (CARBON DIOXIDE) 26 MMOL/L (24-34); GFR AFRICAN AMERICAN 47 ML/MIN (>=60); GFR NON AFRICAN AMERICAN 40 ML/MIN (>=60); GLUCOSE, SERUM 93 MG/DL (60-99); SODIUM, SERUM 139 MMOL/L (135-148)
[2016-07-14 06:44] LABS: BUN (BLOOD UREA NITROGEN) 39 MG/DL (6-23)
[2016-07-14 07:30] LABS: SED RATE 71 MM/HR (0-20)
[2016-07-22 12:48] LABS: CD4 % 13.1 % (30.0-65.0); CD4 LYMPH % 27.8 % (15.0-48.0); CD4 SOURCE Blood (()); CD4 WBC 2.9 K/uL (3.8-11.0)
[2016-07-22 17:45] LABS: HIV-1 VIRAL LOAD RESULT 128 (NOTDET); HIV-1 VIRAL RESULT 2.1 (())
[2016-07-25 06:22] LABS: BASOPHILS 0.2 %; BASOPHILS ABSOLUTE 0.01 10/3/uL (0.0-0.16); EOSINOPHILS 12.2 %; HEMATOCRIT 27.8 % (36.0-48.0); HEMOGLOBIN 9.6 g/dL (12.0-16.0); IMMATURE GRANULOCYTES 0.2 %; IMMATURE GRANULOCYTES ABSOLUTE 0.01 10/3/uL (0.0-0.11); LYMPHOCYTES 24.2 %; LYMPHOCYTES ABSOLUTE 1.19 10/3/uL (0.67-4.30); MEAN CORPUS HGB CONC 34.5 g/dL (32.0-36.0); MEAN CORPUSCULAR HEMOGLOB 29.8 pg (26.0-34.0); MEAN CORPUSCULAR VOLUME 86.3 fL (80-100); MONOCYTES 10.8 %; MONOCYTES ABSOLUTE 0.53 10/3/uL (0.21-1.20); NEUTROPHILS 52.4 %; NEUTROPHILS ABSOLUTE 2.57 10/3/uL (2.02-8.40); PLATELET COUNT 120 10/3/uL (150-400); RBC DISTRIBUTION WIDTH 14.5 % (12.0-16.0); RED CELL COUNT 3.22 10/6/uL (4.0-5.6)
[2016-07-25 06:24] LABS: MANUAL DIFF NO %; WHITE BLOOD CELLS 4.9 10/3/uL (4.5-10.5)
[2016-07-25 06:36] LABS: A/G RATIO 0.6 (0.7-1.9); ALBUMIN 3.1 G/DL (3.5-5.0); ALKALINE PHOSPHATASE 108 U/L (45-117); BUN (BLOOD UREA NITROGEN) 41 MG/DL (6-23); CALCIUM, SERUM 8.8 MG/DL (8.5-10.4); CHLORIDE, SERUM 106 MMOL/L (96-112); CO2 (CARBON DIOXIDE) 27 MMOL/L (24-34); CREATININE 1.65 MG/DL (0.55-1.02); GFR AFRICAN AMERICAN 42 ML/MIN (>=60); GFR NON AFRICAN AMERICAN 36 ML/MIN (>=60); GLOBULIN 5.1 G/DL (2.5-4.1); GLUCOSE, SERUM 103 MG/DL (60-99); SGOT(AST) 20 U/L (5-40); SGPT(ALT) 13 U/L (5-65); SODIUM, SERUM 140 MMOL/L (135-148); TOTAL BILIRUBIN 0.1 MG/DL (0-1.2); TOTAL PROTEIN 8.2 G/DL (6.0-8.5)
[2016-07-26 07:35] LABS: CHLORIDE, SERUM 102 MMOL/L (96-112); CO2 (CARBON DIOXIDE) 26 MMOL/L (24-34); CREATININE 1.41 MG/DL (0.55-1.02); GFR AFRICAN AMERICAN 51 ML/MIN (>=60); GFR NON AFRICAN AMERICAN 44 ML/MIN (>=60); GLUCOSE, SERUM 93 MG/DL (60-99); POTASSIUM, SERUM 4.8 MMOL/L (3.5-5.3); SODIUM, SERUM 136 MMOL/L (135-148)
[2016-07-26 07:36] LABS: BUN (BLOOD UREA NITROGEN) 36 MG/DL (6-23)
[2016-07-28 16:03] LABS: TROPONIN I <0.02 NG/ML (<0.05)
[2016-07-28 16:04] LABS: CK-MB 0.6 NG/ML; CPK 25 U/L (0-200)
[2016-07-31] MEDS ORDERED: DSS PO (14:04)
[2016-07-31] MEDS ORDERED: MIRAPEX125 PO (14:05)
[2016-07-31] MEDS ORDERED: MULTIPLE VIT PO (14:06)
== END 2016-07-31 14:29 | disposition home or self-care (01) | DRG 871 ==
LOC: 1SO 15:18
PROVIDERS: Hospitalist; Internal Medicine; Internal Medicine Infectious Disease; Nurse Practitioner Family; Nurse Practitioner Gerontology
PROC: 02HV33Z Insertion of Infusion Device into Superior Vena Cava, Percutaneous Approach (ICD-10-PCS; principal; 2016-06-24)
PROC: 4A02X4A Measurement of Cardiac Electrical Activity, Guidance, External Approach (ICD-10-PCS; 2016-06-24)
DX: A41.01 Sepsis due to Methicillin susceptible Staphylococcus aureus (principal); I33.0 Acute and subacute infective endocarditis; N17.9 Acute kidney failure, unspecified; L03.221 Cellulitis of neck; D69.6 Thrombocytopenia, unspecified; K76.0 Fatty (change of) liver, not elsewhere classified; N18.3 Chronic kidney disease, stage 3 (moderate); L21.9 Seborrheic dermatitis, unspecified; F14.21 Cocaine dependence, in remission; F11.21 Opioid dependence, in remission; D63.8 Anemia in other chronic diseases classified elsewhere; K12.0 Recurrent oral aphthae; D63.1 Anemia in chronic kidney disease; I12.9 Hypertensive chronic kidney disease with stage 1 through stage 4 chronic kidney disease, or unspecified chronic kidney disease; G25.81 Restless legs syndrome; F31.9 Bipolar disorder, unspecified; J44.9 Chronic obstructive pulmonary disease, unspecified; J45.909 Unspecified asthma, uncomplicated; Z21 Asymptomatic human immunodeficiency virus [HIV] infection status; E53.8 Deficiency of other specified B group vitamins; F17.210 Nicotine dependence, cigarettes, uncomplicated; Z79.899 Other long term (current) drug therapy; Z91.14 Patient's other noncompliance with medication regimen; Z87.11 Personal history of peptic ulcer disease; Z59.0 Homelessness; Z88.2 Allergy status to sulfonamides; Z88.0 Allergy status to penicillin; Z88.1 Allergy status to other antibiotic agents; Z88.8 Allergy status to other drugs, medicaments and biological substances
CPT/HCPCS: 36569; 36593; 71010; 71020; 72125; 72156; 78582; 80048; 80053; 80305; 80307; 81001; 82248; 82550; 82553; 82607; 82728; 82945; 83540; 83550; 83605; 83735; 84100; 84145; 84157; 84484; 85025; 85379; 85610; 85652; 85730; 86361; 86403; 86403-59; 86592; 87015; 87040; 87070; 87077; 87102; 87116; 87150; 87186; 87205; 87210; 87327; 87529; 87529-59; 87536; 87556; 87804; 88112; 89051; 93005; 93306; 96365; 96366; 96375; 99291; A9270-GY; A9540; A9567; A9577; C1751; J0133; J0690; J1170; J2405; J2997; J3370